=== PATIENT | female | born 1955 | race Caucasian/White ===

== ENCOUNTER 2024-12-03 08:29 | Outpatient (CLI) | payer MEDICARE, MEDICAID ==
[~2024-12-03 08:29] MED LIST: AMIT50TA15 PO; ARIP15TA3 PO; BACL20TA PO; FENT1PAT11 TD; HYDR-3965 PO; SIMV-42 PO; TOLT4CAP PO; TRAZ150T78 PO
== END 2024-12-03 23:59 | disposition home or self-care (01) ==
LOC: RAD 08:29
PROVIDERS: ATTEND Nurse Practitioner Family
DX: K76.0 Fatty (change of) liver, not elsewhere classified (principal); R10.31 Right lower quadrant pain
CPT/HCPCS: 76700